=== PATIENT | male | born 1945 | race Caucasian/White ===

== ENCOUNTER 2021-10-22 14:26 | Outpatient (CLI) | payer MEDICARE, BC, SELFPAY ==
--- NOTE | ~2021-10-22 | MR_ITS ---
EXAMINATION: MR knee RT wo con DATE: 10/22/2021 15:21 INDICATION: Right knee pain TECHNIQUE: Magnetic resonance imaging (MRI) of the right knee was performed without intravenous contr ast. Sequences included coronal PD-weighted FSE, coronal PD-weighted FS FSE, sagittal T2-weighted FS E, sagittal PD-weighted FS FSE and axial PD weighted fat saturated FSE. COMPARISON: None. FINDINGS: Medial compartment: Complex tear of the medial meniscus. There is a defect in the region of the posterior body of the men iscus with increased meniscal tissue with macerated appearance along the anterior body likely represe nting displacement secondary degeneration of meniscal tissue from the posterior body. Multiple second pam tear planes at the posterior horn. Advanced osteoarthritis in the medial compartment with extensi ve full-thickness cartilage loss along the anterior, central and portions of the posterior weightbear ing medial femoral condyle scattered mild cortical irregularity and a few small foci of subarticular edema-like signal change at the anterior two thirds of the medial tibial plateau with early remodelin g of the articular cortex. Lateral compartment: Complex lateral meniscal tear which includes both a radial tear plane at the posterior horn as well a s a longitudinal horizontal tear plane extending from the anterior to the posterior horn. Articular c artilage is normal. Patellofemoral compartment: Full-thickness chondral fissuring and small osteophytes along the medial margin of the medial patella r facet. Chondral ulceration and deep fissuring with underlying cortical irregularity and mild cystli ke change at the inferior aspect of the medial trochlea. Ligaments and tendons: Posterior cruciate ligament is normal. The anterior cruciate ligament is mildly thickened with increa sed intrasubstance signal surrounding intact appearing linear fibers with a celery stalk appearance which was a normal course relative to Blumensaat line consistent with mucoid degeneration without di screte tear. The medial collateral ligament is normal. Mild thickening and increased signal of the pr oximal fibular collateral ligament without surrounding edema consistent with mild scarring related to chronic sprain. The extensor mechanism is normal. The visualized medial and lateral hamstring tendon s as well as the iliotibial band are normal. Fluid: Small knee joint effusion with scattered likely reactive synovitis. No loose osteochondral bodies charli ntified. 7.4 x 2.2 x 2.3 cm Alexander's cyst. Osseous/other: Normal marrow signal siphon the previous noted degenerative subchondral changes. No fracture or patho logic marrow replacing process. IMPRESSION: 1. Complex medial and lateral meniscal tears, most severe at the body of the medial meniscus where th ere is a displaced meniscal flap with macerated appearance. 2. 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 3. Mild patellofemoral osteoarthritis with smaller regions of moderate grade patellar and high-grade trochlear chondromalacia. 4. Mucoid degeneration of the anterior cruciate ligament without discrete tear. Correlate with physic al exam to assess for degree of residual functional integrity. 5. 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 Reviewed, dictated and finalized at location A. IMPRESSION: 1. Complex medial and lateral meniscal tears, most severe at the body of the me dial meniscus where there is a displaced meniscal flap with macerated appearanc e. 2. Advanced medial compartment osteoarthritis with extensive high-grade chondro malacia. 3. Mild patellofemoral osteoarthritis with smaller regions of moderate grade pa tellar and high-grade trochlear chondromalacia. 4. Mucoid degenerat
== END 2021-10-22 14:27 | disposition home or self-care (01) ==
PROVIDERS: PCP Family Medicine; Visit Provider Orthopaedic Surgery
DX: S83.231A Complex tear of medial meniscus, current injury, right knee, initial encounter (principal); S83.271A Complex tear of lateral meniscus, current injury, right knee, initial encounter; X58.XXXA Exposure to other specified factors, initial encounter; M17.11 Unilateral primary osteoarthritis, right knee; M71.21 Synovial cyst of popliteal space [Baker], right knee
CPT/HCPCS: 73721

== ENCOUNTER 2021-11-19 07:48 | Outpatient (CLI) | payer MEDICARE, BC, SELFPAY ==
--- NOTE | 2021-11-19 08:48 | ECG_ITS ---
Measurements Intervals [place] Rate: 56 P: 6 WI: 201 QRS: -17 QRSD: 97 T: 1 QT: 394 QTc: 381 Interpretive Statements SINUS BRADYCARDIA NO PREVIOUS ECG AVAILABLE FOR COMPARISON Electronically Signed On 11-19-2021 10:21:21 CDT by Nathaniel Moura MD
[2021-11-19 09:17] LABS: Basophils Percent Auto 0.4 % (0.2-1.2); Eosinophils Absolute Auto 0.3 K/mm3 (0-0.3); Hematocrit 39.9 % (42.0-52.0); Hemoglobin 13.1 g/dL (14.0-18.0); Immature Granulocyte Absolute 0.01 K/mm3 (0.00-0.031); Immature Granulocyte Percent A 0.2 % (0-0.5); Lymphocytes Absolute Auto 0.99 K/mm3 (0.9-3.2); Lymphocytes Percent Auto 20.5 % (18.3-44.2); Mean Corpuscular HGB Conc 32.8 g/dl (32-36); Mean Corpuscular Hemoglobin 30.8 pg (26-34); Mean Corpuscular Volume 93.9 fl (80-100); Mean Platelet Volume 11.6 fl (7.4-10.4); Monocytes Absolute Auto 0.5 K/mm3 (0.1-0.6); Monocytes Percent Auto 9.3 % (2.6-8.5); Neutrophils Absolute Auto 3.1 K/mm3 (1.3-6.7); Neutrophils Percent Auto 63.6 % (45.5-73.1); Platelet Count Result 170 k/mm3 (150-375); Red Blood Count 4.25 M/mm3 (4.6-6.20); Red Cell Distribution Width 12.6 % (11.5-14.5); White Blood Count 4.8 K/mm3 (4.5-10.0)
[2021-11-19 09:27] LABS: INR 1.1; Prothrombin Time 14.2 Seconds (11.1-14.7)
[2021-11-19 09:28] LABS: Partial Thromboplastin Time 32.2 SECONDS (22.3-36.8)
[2021-11-19 09:31] LABS: Albumin Level 4.1 g/dL (3.5-5.1); Anion Gap 8 mmol/L (8-16); Blood Urea Nitrogen 22 mg/dL (9-20); Calcium 9.4 mg/dL (8.4-10.2); Carbon Dioxide 26 mmol/L (22-30); Chloride 105 mmol/L (98-107); Estimated Glomerular Filt Rate 39; Glucose 168 mg/dL (65-110); Potassium 4.4 mmol/L (3.4-5.0); Sodium 139 mmol/L (137-145)
[2021-11-19 09:47] LABS: Hemoglobin A1C 6.5 % (<5.7)
[2021-11-19 09:51] LABS: Urine Cotinine NEGATIVE
== END 2021-11-19 07:49 | disposition home or self-care (01) ==
LOC: ANHSURGERY 07:54
PROVIDERS: Anesthesiology; PCP Family Medicine; Visit Provider Orthopaedic Surgery
DX: M17.11 Unilateral primary osteoarthritis, right knee (principal); Z01.818 Encounter for other preprocedural examination; N18.30 Chronic kidney disease, stage 3 unspecified
CPT/HCPCS: 80048; 80307; 82040; 83036; 85025; 85610; 85730; 86850; 86900; 86901; 87070; 93005

== ENCOUNTER → 2022-08-20 06:19 | Day surgery (SDC) | payer MEDICARE, BC, SELFPAY ==
[2022-08-16 10:28] VITALS: BMI 31.1
--- NOTE | 2022-08-16 10:59 | PC.NURSE ---
Report to the Outpatient Waiting Room, entrance under the green pavilion located off [facility], at time __10:30AM on date _08/20/22 . Planned Procedure Time: __12:30PM . Time changes happen often and if your time is changed the preop area will call you the afternoon before. - You and your visitor will be asked to self-screen and do not enter if you have any COVID symptoms. - A mask is optional within the hospital at this time. Patients may have clear liquids (water, carbonated beverages, clear teas, apple juice) until 3 hours prior to surgery with a maximum of 20 ounces. - No food from midnight until time of surgery Take the following medications with a SIP of water the morning of surgery: ___NONE DO NOT STOP ANY OF YOUR OTHER PRESCRIPTION MEDICATIONS PRIOR TO SURGERY ?EXCEPT THE FOLLOWING Medications to discontinue per physician NONE Date to take last dose Please no make-up, nail niuean, hairspray, perfume, deodorant, or body powder the day of surgery. No jewelry (including any body piercings) or valuables the day of surgery, leave them at home. Please take a shower or bath the night before, or the morning of, surgery with an antibacterial soap. Wear comfortable, loose fitting clothing. Children are encouraged to wear pajamas. - Jewelry must be removed prior to entering the operating room. Rings and piercings that are not removed may be cut off. - The hospital will not accept responsibility for valuables. - Please leave all valuables, including medications, at home the day of surgery. If you are going home after surgery, a licensed courtesy van driver must drive you home. - NO public transportation without another adult if you receive anesthesia. - We recommend that an adult stay with you for 24 hours following discharge. - We also recommend that you do not drive, make important decision, drink alcoholic beverages, or take any drugs that were not prescribed by your health care provider for at least 24 hours after your discharge time. Follow any additional instructions given to you from your surgeon. HIBICLENS SHOWER MORNING OF SURGERY If you or anyone in your household have experienced Covid symptoms in the past week, please notify your surgeon or the nurse liaison at the phone number below for possible testing. Telephone instructions given to __PATIENT & WIFE___and asked if any additional questions and then verbalized understanding. Patient advised to call surgeon office or pre surgery nurse liaison [phone] if any additional questions.
--- NOTE | 2022-08-18 16:42 | PM.SD2 ---
Same Day Admit/Disch: HPI History of Present Illness Chief complaint: Rt Ing Hernia, Umbilical Hernia Narrative: Yeison Galvez is a 76 year old male whom I saw last February with a right inguinal hernia. It was not a particularly large hernia and was not bothersome. He was also noted to have a small right hydrocele. He was sent to urology and seen by Hazel Winchester NP, who determined no surgery was needed for the hydrocele. Patient went to [place] for the winter and returned recently. He was seen in the office again in July and the right inguinal hernia had gotten larger. When bulging it is uncomfortable. After discussion, he is taken to surgery now for robotic laparoscopic right inguinal hernia repair. He was also noted at both exams to have a small umbilical hernia with a 2 cm defect. At the same operation, he will have an open repair of umbilical hernia with mesh. [facility] Past Medical History Medical History BMI 31.0-31.9,adult Erectile dysfunction Gum cancer Myocardial infarction Renal disease Surgical History Surgical History History of heart surgery History of knee surgery Family History Family History Sibling Family history of diabetes mellitus in first degree relative Mother Patient's mother is Father Patient's father is Acute myocardial infarction Social History Social History Smoking status: Former smoker Tobacco type: cigars Second hand tobacco smoke exposure: No Smoking end date: 10/16/94 Additional smoking assessment comments: SMOKED 4 CIGARS/DAY X 20 YEARS Alcohol intake: current Drinks per week: 4 Substance use: never Substance use type: does not use Living arrangements: with family Additional living arrangements comments: Occupation/Education: retired Spiritual care concerns: No Same Day Admit/Disch: Med Pre-admit Medications Home Medications Medication Instructions Recorded Confirmed Type sildenafil 100 mg tablet (Viagra) 100 mg PO DAILY PRN sexual 01/28/21 08/16/22 Rx activity #60 tabs atorvastatin 40 mg tablet 40 mg PO QAM #90 tabs 05/26/22 08/16/22 Rx sitagliptin phos 50 mg-metformin 1 tablet PO QAM #90 tabs 07/15/22 08/16/22 Rx ER 1,000 mg tablet,extend rel 24h mp (Janumet XR) aspirin 81 mg tablet,delayed 81 mg PO DAILY 08/16/22 08/16/22 History release tadalafil 5 mg tablet 5 mg PO BID PRN Erectile 08/16/22 08/16/22 History Dysfunction tamsulosin 0.4 mg capsule 0.4 mg PO HS 08/16/22 08/16/22 History Exam Const: General: comfortable, no acute distress, alert and awake HENMT: Head: normocephalic and atraumatic Mouth: Yes Normal oral and palatal mucosa present Eyes: Conjunctivae: conjunctivae normal Pupils: Equal, round and reactive pupils present EOM: EOMs intact bilaterally Neck: Neck: normal visual inspection, no lymphadenopathy and nontender Resp: Effort & Inspection: normal respiratory effort Auscultation: clear to auscultation bilaterally Cardio: Rate: regular rate Rhythm: regular rhythm Heart sounds: no gallops, no murmurs and no rubs GI: Inspection: non-distended and visible herniation (Umbilical) GI Palp: Yes Soft to palpation, No Tenderness to palpation present (GI), No Hepatomegaly present, No Splenomegaly present and Yes Hernia present (Reducible umbilical hernia with 2 cm defect) : Male General Exam: Yes hernia (Reducible right inguinal hernia) Penis: Yes normal penis Scrotum: Hydrocele present (Small) on the right Testes: Testes normal Skin: Lesions: no lesions Rashes: no rashes Neuro: General: no focal motor deficits and CN's II-XI intact bilaterally Cranial nerves: Yes Equal, round and reactive pupils present, Yes Bilaterally intact EOM pres
== END | disposition home or self-care (01) ==
PROVIDERS: PCP Family Medicine; Visit Provider Surgery
DX: K40.90 Unilateral inguinal hernia, without obstruction or gangrene, not specified as recurrent (principal); K42.9 Umbilical hernia without obstruction or gangrene; N43.3 Hydrocele, unspecified; I25.2 Old myocardial infarction; E11.9 Type 2 diabetes mellitus without complications; Z95.1 Presence of aortocoronary bypass graft; N40.1 Benign prostatic hyperplasia with lower urinary tract symptoms; N13.9 Obstructive and reflux uropathy, unspecified; Z87.891 Personal history of nicotine dependence; Z79.84 Long term (current) use of oral hypoglycemic drugs; Z79.82 Long term (current) use of aspirin; Z53.9 Procedure and treatment not carried out, unspecified reason
CPT/HCPCS: 99212; G0463

== ENCOUNTER 2022-08-27 03:08 | Day surgery (SDC) | payer MEDICARE, BC, SELFPAY ==
[2022-08-24 08:38] VITALS: BMI 31.6
--- NOTE | 2022-08-24 08:43 | PC.NURSE ---
Report to the Outpatient Waiting Room, entrance under the green pavilion located off [facility], at time ___1130____ on date _08/27/22 . Planned Procedure Time: __1:30 PM____. Time changes happen often and if your time is changed the preop area will call you the afternoon before. - You and your visitor will be asked to self-screen and do not enter if you have any COVID symptoms. - A mask is optional within the hospital at this time. Patients may have clear liquids (water, carbonated beverages, clear teas, apple juice) until 3 hours prior to surgery (1030 AM) with a maximum of 20 ounces. - No food from midnight until time of surgery - Infants may have breast milk until 4 hours before surgery, infant formula 6 hours prior to surgery. - Children will be allowed to drink immediately following surgery. If applicable, please bring a bottle or sippy cup to assist with drinking. Juice, water, soda, and popsicles are readily available. For infants on formula, please bring formula the day of surgery. Pacifiers are allowed. Take the following medications with a SIP of water the morning of surgery: NONE DO NOT STOP ANY OF YOUR OTHER PRESCRIPTION MEDICATIONS PRIOR TO SURGERY ?EXCEPT THE FOLLOWING Medications to discontinue per physician NONE Date to take last dose Please no make-up, nail mongolian, hairspray, perfume, deodorant, or body powder the day of surgery. No jewelry (including any body piercings) or valuables the day of surgery, leave them at home. Please take a shower or bath the night before, or the morning of, surgery with an antibacterial soap. Wear comfortable, loose fitting clothing. Children are encouraged to wear pajamas. - Jewelry must be removed prior to entering the operating room. Rings and piercings that are not removed may be cut off. - The hospital will not accept responsibility for valuables. - Please leave all valuables, including medications, at home the day of surgery. If you are going home after surgery, a licensed chuck wagon driver must drive you home. - NO public transportation without another adult if you receive anesthesia. - We recommend that an adult stay with you for 24 hours following discharge. - We also recommend that you do not drive, make important decision, drink alcoholic beverages, or take any drugs that were not prescribed by your health care provider for at least 24 hours after your discharge time. For Pediatric surgeries, we recommend two adults accompany the child home. Follow any additional instructions given to you from your surgeon. HIBICLENS SHOWER AM OF SURGERY If you or anyone in your household have experienced Covid symptoms in the past week, please notify your surgeon or the nurse liaison at the phone number below for possible testing. Telephone instructions given to ____PT and asked if any additional questions and then verbalized understanding. Patient advised to call surgeon office or pre surgery nurse liaison [phone] if any additional questions.
[2022-08-27] VITALS (10 sets, daily range): BP systolic 111–139; BP diastolic 46–97; PULSE 55–99; RESP 16–20; TEMP 36.2–36.4; O2SAT 95–100
[2022-08-27] MEDS: ACETAMINOPHEN 500 MG TABLET 1000 MG PO (12:27)
[2022-08-27] MEDS: KETOROLAC 15 MG/ML VIAL (*BKC) IV PUSH (12:29)
[2022-08-27 12:40] LABS: INR 1.1; Prothrombin Time 14.6 Seconds (11.1-14.7)
--- NOTE | 2022-08-27 12:52 | WPDANESEPPF ---
Anes - Initial Pre Proc Eval Procedure: Operation Date: 08/27/22 13:30 Proposed Procedures p Robotic Laparoscopic Right Inguinal Hernia Repair, - Geo Duke MD s Umbilical Hernia Repair - Geo Duke MD Date/Time: 08/27/22 12:52 Surgeon: Geo Duke MD Pre Op Diagnosis: rt ing hernia,umbilical hernia Patient Data Age: 76 Gender: M Height: 1.78 m Weight: 104.4 kg Last Vital Signs Temp 36.2 C L 08/27/22 12:39 Pulse 58 L 08/27/22 12:39 Resp 20 08/27/22 12:39 BP 117/68 08/27/22 12:39 Pulse Ox 98 08/27/22 12:39 O2 Del Method Room Air 08/27/22 12:39 Allergies Allergy/AdvReac Type Severity Reaction Status Date / Time No Known Allergies Allergy Verified 08/27/22 12:25 Home Medications Medication Instructions Recorded Confirmed Type sildenafil 100 mg tablet (Viagra) 100 mg PO DAILY PRN sexual 01/28/21 08/24/22 Rx activity #60 tabs atorvastatin 40 mg tablet 40 mg PO QAM #90 tabs 05/26/22 08/27/22 Rx sitagliptin phos 50 mg-metformin 1 tablet PO QAM #90 tabs 07/15/22 08/27/22 Rx ER 1,000 mg tablet,extend rel 24h mp (Janumet XR) aspirin 81 mg tablet,delayed 81 mg PO DAILY 08/16/22 08/27/22 History release tadalafil 5 mg tablet 5 mg PO BID PRN Erectile 08/16/22 08/24/22 History Dysfunction tamsulosin 0.4 mg capsule 0.4 mg PO HS 08/16/22 08/27/22 History Laboratory Tests 08/27/22 12:12 PT 14.6 Seconds (11.1-14.7) INR 1.1 APTT 33.0 SECONDS (22.3-36.8) Patient hx anesthesia problems: none Family hx anesthesia problems: none Results Review: All pre-operative results and documents have been reviewed as part of the pre-operative evaluation. [facility] Past Medical History Medical History BMI 31.0-31.9,adult Erectile dysfunction Gum cancer Myocardial infarction Renal disease Surgical History Surgical History History of heart surgery History of knee surgery Family History Family History Sibling Family history of diabetes mellitus in first degree relative Mother Patient's mother is Father Patient's father is Acute myocardial infarction Social History Social History Smoking status: Former smoker Tobacco type: cigars Second hand tobacco smoke exposure: No Smoking end date: 10/16/94 Additional smoking assessment comments: STATES SMOKED 4 CIGARS/DAY X 20YRS Alcohol intake: current Drinks per week: 4 Substance use: never Substance use type: does not use Living arrangements: with family Additional living arrangements comments: Occupation/Education: retired Spiritual care concerns: No Anes - Eval Final PreProcedure Day of Procedure 08/27/22 12:52 Patient weight: obese Heart: regular rate and rhythm Lungs: clear to auscultation Airway: Mallampati scale class II and other (upper plate covers opening in roof of mouth connection to nose) Neurological: alert and oriented Last oral intake: >/= 8 hours ASA classification: III Emergent: no Anesthetic plan: proceed Anesthesia type and monitoring: general ETT and standard monitoring Results Review: All pre-operative results and documents have been reviewed as part of the pre-operative evaluation. Informed Consent: The patient's anesthetic plan and its attendant risks and benefits were discussed with the patient/family/POA. Questions were solicited and answers provided to the satisfaction of the patient/family/POA.
--- NOTE | 2022-08-27 13:00 | WPDHPUPDATE1 ---
History and Physical Update Update Date/Time: 08/27/22 13:00 History and Physical has been reviewed, including an updated exam of the patient. There are NO changes in the patient's condition. Risks, benefits, and alternatives have been discussed and questions answered. Patient agrees to proceed with procedure.
[2022-08-27] MEDS: ceFAZolin 2 GM/D5W 50 ML 2 GM/50 ML BAG IVPB (13:43)
--- NOTE | 2022-08-27 14:25 | SUR.OPER ---
umbilical mesh ventralex st hernia patch lot [id number], exp 2023-12-14.
[2022-08-27] MEDS: BUPIVACAINE/EPINEPHRINE 0.5% 50 ML VIAL 35 ML INFILTRATE (14:46)
[2022-08-27 15:00] LABS: Glucose Point of Care 123 mg/dl (65-105)
--- NOTE | 2022-08-27 15:49 | W.PM.PROC2 ---
Procedure Note - Detailed Date of Procedure 08/27/22 Pre-op Diagnosis rt ing hernia,umbilical hernia Post-op Diagnosis Same Procedure Performed Open umbilical hernia repair with 4.[address] underlay mesh, robotic laparoscopic repair right inguinal hernia with 17 x 12 cm 3D max mesh Surgeon Geo Duke MD Nurse Intern Oniel LEMUS, Nhi LEMUS Anesthesia General and Local (0.5% Marcaine with epinephrine) Indications Patient presented last fall with a large right inguinal hernia which had been getting bigger and is been bothersome. He was also noted to have a reducible asymptomatic umbilical hernia. After discussion, he is taken to surgery now for robotic repair of the right inguinal hernia as well as open repair of the umbilical hernia with mesh. Findings The umbilical hernia defect was 1.5 cm. The right inguinal hernia was a large indirect hernia. Description of Procedure Patient was taken to surgery and induced into general anesthesia. The abdomen is prepped and draped. We started with the umbilical hernia. A curved incision along the upper margin of the umbilicus was marked on the skin. Local was infiltrated into the skin and the deeper subcutaneous tissues. Incision was made dissection was carried down through the subcutaneous and the hernia sac was located. I then dissected circumferentially around the hernia sac and then divided the hernia sac reducing the properitoneal fat from the defect and then dissecting all around the hernia defect itself. I then excised the remnants of the hernia sac. I divided the herniated properitoneal fat. Both of these were discarded. I then placed a finger in the hernia defect and checked for any adhesions. None were noted. I removed a bit of the properitoneal fat around the defect. I then used a 4.[address] mesh and placed in the defect. Cranial and caudal transfascial sutures of 0 Ethibond were placed. I then closed the defect with [id number] mattress sutures of 0 Ethibond in each of these stitches incorporated a bit of mesh as well. I then removed any remnants of hernia sac from the umbilical skin. The umbilical skin was sutured to the fascia with 3-0 Vicryl suture. Some subcutaneous 3-0 Vicryl sutures were placed. The skin was then loosely approximated with subcuticular 4-0 Vicryl skin suture. The skin was closed with a running 4-0 Monocryl skin suture. We then marked the areas for the robotic laparoscopic ports. Local was infiltrated in the area where each of these 3 incisions was to be made. Incision was made at the middle trocar site and using a 5 mm applied Medical optical trocar we gained access to the peritoneal cavity. With the cavity insufflated I then reviewed the area of the umbilical hernia repair. All looked good. We then placed the right lateral 8 mm robotic port under direct visualization. I exchanged the 5 mm port for an 8 mm robotic port in the middle trocar site. Finally another 8 mm robotic trocar was placed in the left-sided port site. The robot was brought into the field and the camera was docked. The camera was then targeted. The 2 side ports were loaded with instruments and positioned appropriately. The surgeon then went to the console. A peritoneal flap was created in the area of the right inguinal hernia starting laterally and then proceeding above and medially over to the median umbilical ligament. The flap was then created staying on the peritoneum as best possible but mostly dissecting in the loose areolar tissue evident by tension on the flap. Medially we stayed fairly close to the rectus abdominis muscle and then dissected down to the pubis. We dissected across to the midline so that the left-sided rectus was seen. The pubis was exposed and dissection was carried a couple of cm posterior to the pubis. We then dissected laterally freeing the peritoneal flap and that direction well below the pectinate line. We dissected some fatty tissue from
[2022-08-27] MEDS: LACTATED RINGERS 1,000 ML 30 ML IV CONT ×2 (15:57)
[2022-08-27 16:26] LABS: Glucose Point of Care 223 mg/dl (65-105)
[2022-08-27] MEDS: oxyCODONE HCL (*CRX) 5 MG TAB IR PO (17:41)
== END 2022-08-27 18:15 | disposition home or self-care (01) ==
PROVIDERS: Anesthesiology; PCP Family Medicine; Visit Provider Surgery
PROC: 8E0Y4CZ Robotic Assisted Procedure of Lower Extremity, Percutaneous Endoscopic Approach (ICD-10-PCS; CPT 49650; principal; 2022-08-27 13:30)
PROC: (CPT 49650; 2022-08-27 13:30)
DX: K40.90 Unilateral inguinal hernia, without obstruction or gangrene, not specified as recurrent (principal); K42.9 Umbilical hernia without obstruction or gangrene; I25.2 Old myocardial infarction; Z79.84 Long term (current) use of oral hypoglycemic drugs; Z79.82 Long term (current) use of aspirin; Z87.891 Personal history of nicotine dependence; E66.9 Obesity, unspecified; Z68.33 Body mass index [BMI] 33.0-33.9, adult
CPT/HCPCS: 49650; 49591; S2900; 36415; 82948; 85610; 85730; 86850; 86900; 86901; A9270; C1781; J0690; J1100; J1170; J1885; J2405; J2704; J2710; J3010; J7030; J7120